=== PATIENT | female | born 1985 | race Two or more races ===

== ENCOUNTER 2023-01-08 16:30 | Emergency (ER) | payer MEDICAID ==
[~2023-01-08] VITALS: Ht 180.3 cm; Wt 121.0 kg
[2023-01-08 16:40] VITALS: BP 157/98
== END 2023-01-08 22:32 | disposition left against medical advice (07) ==
LOC: ER 20:33
DX: Z53.21 Procedure and treatment not carried out due to patient leaving prior to being seen by health care provider (principal)